=== PATIENT | female | born 1940 | race Caucasian/White ===

== ENCOUNTER 2017-10-14 14:49 | Emergency (ER) | payer MEDICARE ==
[2017-10-14] MEDS ORDERED: Nitroglycerin 0.4 MG TAB (25 Tab Bottle) ONE (15:02)
[2017-10-14] MEDS ORDERED: Metoprolol Tartrate 5 MG/5 ML VIAL ONE ×2 (15:02→15:30)
[2017-10-14 15:26] LABS: ALT (SGPT) 152 U/L (8-55); AST (SGOT) 100 U/L (5-34); Albumin 3.6 g/dL (3.4-4.8); Alkaline Phosphatase 171 U/L (40-150); Anion Gap 18 mmol/L (10-20); BUN (Urea Nitrogen) 41 mg/dL (9.8-20.1); Bilirubin, Total 0.9 mg/dL (0.2-1.2); Calc. Creatinine Clearance 0 mL/min (70-130); Calcium 9.4 mg/dL (7.8-10.44); Carbon Dioxide 25 mmol/L (23-31); Chloride 89 mmol/L (98-107); Estimated GFR-MDRD 37; Glucose 119 mg/dL (83-110); Potassium 4.5 mmol/L (3.5-5.1); Protein, Total 7.6 g/dL (6.0-8.3); Sodium 127 mmol/L (136-145)
[2017-10-14 15:28] LABS: Troponin I 0.063 ng/mL (< 0.028)
[2017-10-14 15:29] LABS: PTT 25.7 SEC (22.9-36.1)
[2017-10-14 15:30] LABS: Prothrombin Time 13.1 SEC (12.0-14.7)
[2017-10-14 15:34] LABS: Band 6 % (5-11); Eosinophils 1 % (0-10); Hemoglobin 14.8 g/dL (12.0-16.0); Lymphocytes 18 % (21-51); MDiff Complete? YES; Mean Corpuscular HGB CONC 34.2 g/dL (32.0-36.0); Mean Corpuscular Hemoglobin 29.2 pg (27.0-31.0); Mean Corpuscular Volume 85.3 fl (81.0-99.0); Mean Platelet Volume 8.5 fL (7.4-10.4); Monocytes 9 % (0-10); Neutrophil 66 % (42-75); Platelet Count 123 thou/uL (130-400); RBC Distribution Width 12.8 % (11.5-14.5); Red Blood Cell (RBC) Count 5.09 mill/uL (4.20-5.40)
[2017-10-14 15:37] LABS: White Blood Cell (WBC) Count 21.2 thou/uL (4.8-10.8)
[2017-10-14 15:44] LABS: D-Dimer Test 5.59 *mcg/mL (0.27-0.43)
[2017-10-14] MEDS ORDERED: Sodium Chloride 0.9% 100 ML ONE (15:57)
[2017-10-14] MEDS ORDERED: Piperacillin/Tazobactam 3.375 GM VIAL ONE (15:57)
[2017-10-14] MEDS ORDERED: Ondansetron HCl/PF 4 MG/2 ML Vial ONE (16:05)
--- NOTE | 2017-10-14 16:30 | RAD ---
UPRIGHT PORTABLE CHEST ONE VIEW: 10/14/17 HISTORY: 77-year-old female with chest pain and shortness of breath for the last week, worse with exertion. There are prominent linear and interstitial increased markings bilaterally, particularly in the lower lung zones with some confluence in the right lower lobe. There is some scarring and biapical pleural thickening in the apices. Atherosclerosis of the aorta with some ectasia. No overt pleural effusion. Heart size is within normal limits. IMPRESSION: Increased linear and interstitial markings with some confluent changes in the bases. Possibilities in clude that of bibasilar pneumonia, possibly with some degree of underlying chronic interstitial disea se. Asymmetric pulmonary edema could certainly have a similar appearance although the right base conf luence certainly is more concerning for pneumonia. Right paratracheal fullness, possibly representin g some adenopathy. Biapical pleural thickening and some scarring. Correlate clinically. POS: [facility]
[2017-10-14] MEDS ORDERED: Acetaminophen 500 MG TAB ONE (17:03)
== END 2017-10-14 17:57 | disposition short-term general hospital (02) ==
LOC: BURERS 14:49
DX: J18.9 Pneumonia, unspecified organism (principal); R79.89 Other specified abnormal findings of blood chemistry; R07.2 Precordial pain; E03.9 Hypothyroidism, unspecified; I10 Essential (primary) hypertension; Z87.891 Personal history of nicotine dependence; Z79.899 Other long term (current) drug therapy; Z79.82 Long term (current) use of aspirin
CPT/HCPCS: 36415; 71010; 80053; 82553; 83605; 83880; 84484; 85025; 85379; 85610; 85730; 87040; 93005; 94760; 96365; 96375; J2405; J2543; J7050